=== PATIENT | male | born 1965 | race African-American/Black ===

== ENCOUNTER 2016-12-08 23:38 | Emergency (ER) | payer OTHER ==
[~2016-12-08] VITALS: Ht 193 cm; Wt 81.8 kg
[~2016-12-08 23:38] MED LIST: [UNRECOGNIZED DRUG - OTHER]
[2016-12-09] MEDS ORDERED: ALBUTEROL SULFATE 2.5 MG/0.5 ML NEB SOLUTION NEB ONE (01:30)
[2016-12-09] MEDS ORDERED: IPRATROPIUM BROMIDE 0.5 MG/2.5 ML NEB SOLUTION NEB ONE (01:30)
[2016-12-09 02:29] VITALS: BP 126/78
[2016-12-09] MEDS ORDERED: ACETAMINOPHEN 500 MG TABLET ONE (02:56)
[2016-12-09] MEDS ORDERED: ACETAMINOPHEN 500 MG TABLET PO ONE (03:00)
== END 2016-12-09 02:46 | disposition home or self-care (01) ==
LOC: EMS 23:40
DX: J40 Bronchitis, not specified as acute or chronic (principal); F17.210 Nicotine dependence, cigarettes, uncomplicated; Z88.1 Allergy status to other antibiotic agents
CPT/HCPCS: 71010; 94060; 94640; 99283; J7613

== ENCOUNTER 2017-01-05 18:52 | Emergency (ER) | payer OTHER ==
[~2017-01-05] VITALS: Ht 193 cm; Wt 77.3 kg
[2017-01-05 19:20] VITALS: BP 136/90
[2017-01-05] MEDS ORDERED: SULFAMETHOX/TRIMETH DS 800-160 MG/TABLET PO ONE (20:15)
[2017-01-05] MEDS ORDERED: HYDROCODONE/ACETAMINOPHEN 5-325 MG TABLET PO ONE (20:15)
== END 2017-01-05 20:34 | disposition home or self-care (01) ==
LOC: EMS 18:54
DX: L02.11 Cutaneous abscess of neck (principal); F17.210 Nicotine dependence, cigarettes, uncomplicated; Z90.49 Acquired absence of other specified parts of digestive tract; Z88.1 Allergy status to other antibiotic agents
CPT/HCPCS: 99283